=== PATIENT | female | born 1955 | race Caucasian/White ===

== ENCOUNTER → 2016-11-19 | Outpatient (CLI) | payer OTHER ==
[~2016-11-19] MED LIST: ALLERGY SYRING1 EAC1 SUBQ; AMLODIPINE BESYL5 MG PO; ASPIRIN EC81 M1 PO; ASPIRIN81 MG PO; ATORVASTATIN CA40 MG PO; BRILINTA60 MG PO; BRILINTA90 MG PO; CHLORTHALIDONE25 MG PO; CIPRO250 MG PO; CLARITIN10 M2 PO; CLARITIN10 M3 PO; COLCHICINE PO; COREG12.5 M1 PO; COREG12.5 MG PO; COZAAR100 MG PO; EFFEXOR37.5 MG PO; FUROSEMIDE40 MG PO; HUMALOG100 U/M1 SUBQ; HUMALOG100 U/M2 SUBQ; HUMALOG100 UNIT/1 SUBQ; HYDROCODON-ACE1 EAC5 PO; LANTUS SOLOSTAR3 ML SUBQ; LANTUS100 U/ML SUBQ; LASIX PO; LASIX20 MG PO; LIPITOR20 MG PO; LIPITOR40 MG PO; LISINOPRIL2.5 MG PO; LORTAB 10-3251 EACH PO; LORTAB 10-5001 EACH PO; METFORMIN PO; NEURONTIN600 MG PO; NORCO 10-325 TA1 TAB PO; NORVASC PO; PRAVASTATIN SOD40 MG PO; VITAMIN D 2 PO; VITAMIN D250000 UNIT PO
[2016-11-19 10:45] LABS: CALCIUM SERUM 9.2 mg/dL (8.4-10.2); CREATININE SERUM 1.7 mg/dL (0.6-1.4); GLOM FILT RATE Estimated 32.6 mL/min (>60); POTASSIUM 5.2 mmol/L (3.5-5.1)
== END | disposition home or self-care (01) ==
LOC: CLAB 09:29
PROVIDERS: Internal Medicine Cardiovascular Disease
DX: R60.9 Edema, unspecified (principal)
CPT/HCPCS: 36415; 80048

== ENCOUNTER 2016-12-28 20:17 | Inpatient (IN) | payer OTHER ==
--- NOTE | ~2016-12-28 | HP ---
Unit #: [id number] #: [id number] Patient: GOKUL GONZALEZ [id number] [facility] [address] [place], [place] [address] [id number] I MR#: [id number] NAME: GOKUL GONZALEZ ROOM: 241 Age: 61 Sex: F Admission Date: 12/28/2016 : 1955 Attending Physician: Maricruz Barajas M.D. Primary Care Physician: Aaron Martinez M.D. HISTORY AND PHYSICAL CHIEF COMPLAINT Generalized weakness and sweating. HISTORY OF PRESENT ILLNESS A 61-year-old female with multiple medical problems, woke up in the middle of the night and was feeling very weak, tired, and sweating. She had some milk at that time, went back to sleep. She woke up hours later, attempted to go to the yazidism but she was too weak to ambulate. She had diffuse muscle aches. She remained at home and then later on came to ER. In ER, patient was found to be in acute renal failure with elevated creatinine of 2.5. The patient was admitted to med/surg unit at [facility]. The patient does not complain of any fevers, chills, or rigors. She does not complain of chest pain. She did not complain of abdominal pain. She does not complain of vomiting. She did have some nausea. No diarrhea. PAST MEDICAL HISTORY 1. History of chronic kidney disease. 2. History of congestive heart failure with ejection fraction of 20% to 25%. 3. Type 2 diabetes mellitus. 4. Coronary artery disease, history of PCI in the past. 5. Hypertension. HOME MEDICATIONS As per med rec which has been reviewed at length and it states she is on: 1. Norvasc. 2. Lantus. 3. Humalog. 4. Lortab. 5. Claritin. 6. Effexor. 7. Vitamin D supplement. 8. Coreg. 9. Brilinta. 10. Aspirin. 11. Cozaar. 12. Chlorthalidone. 13. Lasix. 14. Colchicine. 15. Pravastatin. SOCIAL HISTORY The patient lives at home by herself. No history of smoking or alcohol Unit #: [id number] #: [id number] Patient: GOKUL GONZALEZ abuse. ALLERGIES Dye, codeine, erythromycin, ceftriaxone. FAMILY HISTORY Noncontributory. REVIEW OF SYSTEMS Per patient, she did go to her orthopedic surgeon and she had right knee injections done. She thinks it was some sort of dye and that could have thrown her in acute renal failure. That is what happened to her a few years ago when she was admitted downtown and had to have dialysis x1. At that time, she had IV dye. She does not complain of any syncopal episode or dizziness. No complaint of skin rashes. No polyuria or polydipsia. PHYSICAL EXAMINATION GENERAL: The patient is lying comfortably in bed in no respiratory distress. VITAL SIGNS: Blood pressure is 166/69, heart rate is 82, respiratory rate 18, and temperature is 98.6. HEENT: Head is normocephalic. Eye movements are normal. Pale conjunctivae. NECK: Supple. No masses. HEART: S1, S2 positive. A slight systolic ejection murmur is heard. LUNGS: Fair air entry. No additional sounds. ABDOMEN: Soft, obese, nontender. Bowel sounds are positive. EXTREMITIES: Warm to touch. No rashes. (1) . No edema. Pulses are palpable. CENTRAL NERVOUS SYSTEM: Awake, alert, oriented x3. No focal neurological deficit. Cranial nerves are grossly intact. DIAGNOSTIC STUDIES LABORATORY: Influenza A and B are negative. WBC 7.2, hemoglobin 10.3, hematocrit 30.9, platelet count 250,000. Sodium 138, potassium 4.3, BUN 74, creatinine 2.5. Troponin less than 0.05. Urinalysis shows trace leukocyte esterase. IMAGING: Chest x-ray was done which shows normal portable chest. ASSESSMENT The patient is being admitted to med/surg unit at [facility] with a diagnosis of: 1. Extreme generalized weakness. 2. Acute on chronic renal failure. 3. History of congestive heart failure with ejection fraction of 20% to 25%. 4. History of coronary artery disease, status post percutaneous coronary intervention in 2016. 5. Diabetes mellitus type 2. 6. Hypertension. 7. Hyperlipidemia. PLAN Admit to med/surg unit. Dr. Viera has been consulted. IV fluids are being started. Last note from (2) will be obtained. Echocardiogram will be done. Labs will be repeated tomorrow morning. Home medications have been reviewed and adjusted. Accu-Devendra her and at Unit #: [id number] #: [id number] Patient: LISA,GOKUL bedtime with insulin sliding scale is being started. Deep venous thrombosis prophylaxis and gastrointestinal prophylaxis have been started. Please refer to progress note for further orders. Dictated by Severo Perez TD: 12/31/2016 12:02 JOB #: [id number] HISTORY AND PHYSICAL Page 1 of 1 X Maricruz Barajas MD X HISTORY AND PHYSICAL
--- NOTE | ~2016-12-28 | CO ---
Unit #: [id number] #: [id number] Patient: GOKUL GONZALEZ [id number] [address] [place], [place] [address] [id number] I MR#: [id number] NAME: GOKUL GONZALEZ ROOM: 241 Age: 61 Sex: F Admission Date: 12/28/2016 : 1955 Attending Physician: Maricruz Barajas M.D. Primary Care Physician: Aaron Martinez M.D. Consultation Date: 12/29/2016 CONSULTATION REPORT REASON FOR CONSULTATION Acute renal failure. I would like to thank Dr. Alcantara kindly for this referral. HISTORY OF PRESENT ILLNESS This is a 61-year-old white female with a known history of chronic kidney disease. I saw her during a previous visit here. Her baseline creatinine is actually 1.6 to 1.8. She came in for an episode of weakness. She states that she was in normal state of health on Thursday. In the middle of night, she woke up in a pool of sweat and was profoundly weak. She went to the refrigerator, drank some milk, she did not check her blood sugar, and then got back in bed. She woke up few hours later and attempted to go to quaker, but states she was too weak and just had diffuse muscle aches, so she remained at home. She states when she came to the ER last evening where she was noted to have acute renal failure with creatinine of 2.5. She was hydrated overnight with normal saline and her creatinine has improved to 2.0. However, during this time, her sodium has improved from 138 to 134. Her blood pressure has been at goal. PAST MEDICAL HISTORY 1. CKD, stage 3. 2. CHF with ejection fraction of 20% to 25%. 3. Type 2 diabetes with insulin dependence. 4. Coronary artery disease. 5. History of stent placement. 6. Hypertension. 7. History of previous admission for cellulitis. CURRENT MEDICATIONS AT HOME As follows. Norvasc, Lantus, Humalog, Lortab, Claritin, Effexor, vitamin D supplement, Coreg, Brilinta, aspirin, Cozaar, chlorthalidone, Lasix, colchicine, pravastatin. ALLERGIES She is allergic to iodine dye, codeine, erythromycin, ceftriaxone. SOCIAL HISTORY She does not smoke or drink. She lives alone, but has good family support. FAMILY HISTORY Noncontributory. REVIEW OF SYSTEMS Unit #: [id number] #: [id number] Patient: GOKUL GONZALEZ No fevers. No syncope or seizure like activity. No chest pain or palpitation. No shortness of air, cough, congestion, abdominal pain, nausea, vomiting, diarrhea, melena, bright red blood per rectum. No dysuria, urgency, or frequency. No new rashes. No edema. No changes in muscle strength. No polyuria. No polydipsia. No changes in vision. PHYSICAL EXAMINATION VITAL SIGNS: Blood pressure 166/69, heart rate of 82, respiratory rate of 18, she is afebrile. GENERAL: She is alert and oriented, in no acute distress. HEENT: Extraocular movements are intact. No scleral icterus. NECK: Supple with no masses. Slight JVD. HEART: Regular S1, S2 with a slight systolic ejection murmur heard at left sternal border. LUNGS: Slightly diminished in the bases, but no rales, rhonchi, or wheezes appreciated. ABDOMEN: Soft, obese, nontender, nondistended with normal bowel sounds. EXTREMITIES: Warm to touch. No rashes. Normal color. No edema. NEUROLOGIC: She has 5/5 strength in all extremities. Cranial nerves are grossly intact. DIAGNOSTIC STUDIES LABORATORY RESULTS: Reviewed. Sodium 134, potassium 4.0, bicarb is 18, BUN is 67, creatinine is 2.0, calcium 8.6. White count 7, hemoglobin 9, platelets are 230. IMAGING STUDIES: Chest x-ray is reviewed and is negative for any acute disease. ASSESSMENT 1. Acute kidney injury. 2. Chronic kidney disease, stage 3. 3. Diabetes. 4. Weakness. 5. Hyponatremia. 6. Congestive heart failure. 7. Metabolic acidosis. PLAN At this time, I do agree that she is lying to plead on exam. She received normal saline upon arrival. Her volume status has improved. We will go ahead and stop her IV fluids today due to the fact that her sodium is dropping. We will go ahead and check a renal ultrasound and urine studies for any additional etiology for her renal failure. At this time, we laid her off for TOMASZ inhibitor as well as diuretics. If her acidosis worsens, we will start her on oral supplements. We will also check a total CK with her a.m. labs. We will add p.r.n. hydralazine for her hypertension. I have discussed this with her primary who is Dr. Alcantara. Please feel free to call with any questions or concerns regarding her renal issues. Dictated by... Mariam Viera M.D. JO-ANN/micki TD: 12/29/2016 22:37 JOB #: [id number] Unit #: [id number] #: [id number] Patient: GOKUL GONZALEZ CONSULTATION REPORT Page 1 of 1 X Mariam Viera MD X CONSULTATION REPORT
--- NOTE | ~2016-12-28 | DS ---
Unit #: [id number] #: [id number] Patient: GOKUL GONZALEZ [id number] [address] [place], [place] [address] [id number] I MR#: [id number] NAME: GOKUL GONZALEZ ROOM: 241 Age: 61 Sex: F Admission Date: 12/28/2016 : 1955 Discharge Date: 01/01/2017 Attending Physician: Maricruz Barajas M.D. Primary Care Physician: Aaron Martinez M.D. DISCHARGE SUMMARY CONSULTATIONS DURING HOSPITALIZATION 1. Dr. Mariam Viera. 2. Dr. Coy from renal services. DIAGNOSTIC STUDIES LABORATORY: Workup on discharge: Hemoglobin A1c 8.3. Sodium 140, potassium 4.8, chloride 112, BUN 50, creatinine 1.5, bicarb 21, and calcium 8.9. CBC shows WBC 6.3, hemoglobin 9.2, hematocrit 27.6, and platelet count of 227. Influenza A and B was done on admission, which was negative. Troponin on admission was less than 0.05. Urinalysis: Trace leukocyte esterase, negative bacteria. Urine culture was less than 10,000 colonies, non-significant. IMAGING STUDIES DONE DURING HOSPITALIZATION: Ultrasound of kidneys, which shows no evidence of hydronephrosis or nephrolithiasis. No perinephric fluid collection. No cystic or solid mass lesion. Persistent lobulation contour of the bilateral kidneys. There is mild cortical thinning in the kidneys bilaterally. This may be a reflection of underlying chronic renal disease. Chest x-ray, single view, was done on admission, which shows normal portable chest. FINAL DIAGNOSES 1. Acute kidney injury, prerenal, nonoliguric. 2. Chronic kidney disease, stage 3. 3. Hypertension. 4. Diabetes mellitus type 2. 5. Generalized weakness, which has improved. 6. Hyponatremia, resolved. 7. History of congestive heart failure. 8. Mild metabolic acidosis, resolved. 9. Anemia. DISCHARGE MEDICATIONS 1. Effexor 37.5 mg twice a day. 2. Loratadine 10 mg every day p.r.n. 3. Coreg 12.5 mg p.o. twice a day. 4. Norvasc 10 mg p.o. every day. 5. Pravastatin 40 mg p.o. every day. 6. Lantus, continue home dose. 7. Insulin lispro 12 units subcu. t.i.d. with meals. 8. Aspirin 81 mg every day. 9. Hydrocodone, continue home dose. Unit #: [id number] #: [id number] Patient: GOKUL GONZALEZ 10. Colchicine 0.3 mg b.i.d. p.r.n. 11. Brilinta 90 mg p.o. twice a day. 12. Vitamin D, continue home dose. Please note following medications are on hold. 1. Chlorthalidone 12.5 mg every day. 2. Furosemide 40 mg every day. 3. Losartan 100 mg every day. Renal will be evaluating the patient to see whether these medications can be restarted. HOSPITAL COURSE Ms. Gokul Gonzalez is a 61-year-old female who was admitted to the hospital because of generalized weakness and chills. Patient's baseline creatinine is 1.6-1.8. She was found to have elevated creatinine of 2.5 and was admitted to hospital with acute renal failure, possible prerenal, on top of chronic kidney disease. Patient was started on IV fluids (1)____ and later on that was stopped. Renal ultrasound was done. Urine studies were done. Renal ultrasound shows maybe some changes for chronic renal disease. Patient's losartan, Lasix, and chlorthalidone have been on hold since admission. Renal functions have improved, but she will need to continue followup with renal as outpatient. Echocardiogram was done during hospitalization, which shows left ventricular systolic function is normal with visually estimated ejection fraction of 50% to 55%, mildly dilated left atrium, mild mitral regurgitation, mild tricuspid regurgitation, right ventricular systolic pressure is 34, and some pericardial effusion is present. Patient will need to follow up with cardiology as outpatient. PHYSICAL EXAMINATION VITAL SIGNS ON DISCHARGE: Blood pressure is 154/68, respiratory rate 18, pulse is 73, and temperature 98. CHEST: Fair air entry. No additional sounds. CVS: S1 and S2 positive. Regular rhythm. ABDOMEN: Soft. EXTREMITIES: Negative edema. DISCHARGE INSTRUCTIONS 1. Patient is being discharged home in stable condition. 2. Follow up with primary care provider in one week. 3. BMP to be done in one week. 4. Follow up renal as scheduled. 5. Follow up cardiology as outpatient. 6. No NSAID, Advil, Aleve, or ibuprofen as outpatient. This was explained to patient at length. She does verbalize understanding. Dictated by... Severo Perez TD: 01/02/2017 09:37 JOB #: [id number] Unit #: [id number] #: [id number] Patient: GOKUL GONZALEZ DISCHARGE SUMMARY Page 1 of 1 X Maricruz Barajas MD X DISCHARGE SUMMARY
--- NOTE | ~2016-12-28 | US77 ---
[facility] A Service of [facility] & [facility] RADIOLOGY TEXT RESULTS PATIENT: GOKUL GONZALEZ LOCATION: C2A 241-01 : [birth year] UNIT #: [id number] AGE: [address]: Maricruz Barajas MD SEX: F ORDER DR: [id number] [facility] [address] [place], [place] [address] [id number] I MR#: [id number] Acc #: [id number] NAME: GOKUL GONZALEZ : 1955 SEX: F STUDY DATE/TIME: 12/30/2016 8:17 UNIT: C2A ROOM: 241 STUDY DESCRIPTION: US Kidney Bilateral Complete Attending Physician: Maricruz Barajas M.D. Ordering Physician: Maricruz Barajas M.D. Primary Care Physician: Aaron Martinez M.D. MEDICAL IMAGING REPORT This report is preliminary unless electronic signature is present EXAM Ultrasound kidney bilateral complete 12/30/2016 HISTORY Hyponatremia, no abdominal pain, creatinine 1.6, eGFR 34.7, BUN 56. FINDINGS Real-time ultrasonography of the kidneys performed bilaterally. Comparison to a study dated 04/17/2016 and MRI dated 05/01/2016. Visualized portions of the liver are unremarkable. The right kidney shows no hydronephrosis or nephrolithiasis. It measures approximately 11.3 cm in greatest length. There appears to be some subtle generalized cortical thinning of the right kidney in comparison to the prior examination. Prior examination showed area of focal parenchymal prominence in the mid right kidney. This is much less conspicuous on the current examination. Intervening MRI showed no evidence of suspicious renal mass lesion. The appearance on prior ultrasound probably reflects persistent lobulation. As on the prior ultrasound, the renal parenchyma shows mild generalized lobulated contour. No perinephric fluid collection. No renal calculi. Visualized urinary bladder unremarkable. The left kidney measures 11.4 cm in greatest length. No hydronephrosis or nephrolithiasis. No cystic or solid mass lesion is suggested and there is no perinephric fluid collection. The left renal parenchyma shows some questionable cortical thinning in the upper and lower poles as compared to the prior examination. IMPRESSION 1. There is no evidence of hydronephrosis or nephrolithiasis. No perinephric fluid collections. No cystic or solid mass lesions. 2. Persistent lobulation contour of the bilateral kidneys. 3. In comparison to April 2016. There appears to be some mild cortical thinning in the kidneys bilaterally. This may be a reflection of underlying chronic renal disease. [facility] A Service of [facility] / [facility] RADIOLOGY TEXT RESULTS PATIENT: GOKUL GONZALEZ LOCATION: [facility] 241-01 : [birth year] UNIT #: [id number] AGE: [address]: Maricruz Barajas MD SEX: F ORDER DR: 4. Visualized urinary bladder unremarkable. 5. Visualized right hepatic lobe unremarkable. Dictated by... Maxwell Brown M.D. THIS IS AN ELECTRONICALLY VERIFIED REPORT Maxwell Brown M.D. at 12/31/2016 2:37 PM ALONSO/beatrice TD: 12/30/2016 12:17 JOB #: [id number] MEDICAL IMAGING REPORT Page 1 of 1 COPY
--- NOTE | ~2016-12-28 | CR72 ---
[facility] A Service of [facility] & [facility] RADIOLOGY TEXT RESULTS PATIENT: GOKUL GONZALEZ LOCATION: [facility] 241-01 : 57 UNIT #: [id number] AGE: [address]: Maricruz Barajas MD SEX: F ORDER DR: [id number] [facility] [address] [place], [place] [address] [id number] I MR#: [id number] Acc #: [id number] NAME: GOKUL GONZALEZ : 1955 SEX: F STUDY DATE/TIME: 12/28/2016 21:46 [facility] [address]3345 STUDY DESCRIPTION: CR Chest Single View Portable Attending Physician: Maricruz Barajas M.D. Ordering Physician: Cecelia Spencer M.D. Primary Care Physician: Aaron Martinez M.D. MEDICAL IMAGING REPORT This report is preliminary unless electronic signature is present EXAM Single view of the chest, 12/28/2016 COMPARISON Chest 2 views, 04/15/2016 HISTORY Shortness of air and weakness on 12/28/2016 FINDINGS Single view of the chest was obtained. A single AP portable view of the chest shows both lungs to be clear. The heart is normal in size. The mediastinal contour is normal. No significant bone abnormalities are seen. IMPRESSION Normal portable chest. Dictated by... Eduardo Smith M.D. THIS IS AN ELECTRONICALLY VERIFIED REPORT Eduardo Smith M.D. at 12/29/2016 1:51 PM CPR/chelle TD: 12/29/2016 08:04 JOB #: [id number] MEDICAL IMAGING REPORT Page 1 of 1 COPY
--- NOTE | ~2016-12-28 | EKG ---
PATIENT: GOKUL GONZALEZ UNIT #: [id number] Ventricular Rate: 92 BPM Atrial Rate: 92 BPM P-R Interval: 228 ms QRS Duration: 98 ms Q-T Interval: 380 ms QTC Calculation(Bezet): 469 ms P Florence: 48 degrees Calculated R Florence: -3 degrees Calculated T Florence: 37 degrees Diagnosis Line: Sinus rhythm with 1st degree A-V block Diagnosis Line: Possible Inferior infarct , age undetermined Diagnosis Line: Abnormal ECG Diagnosis Line: When compared with ECG of 11-FEB-2016 05:46, Diagnosis Line: OR interval has increased Diagnosis Line: Nonspecific T wave abnormality no longer evident Diagnosis Line: in Inferior leads Diagnosis Line: T wave inversion no longer evident in Diagnosis Line: Anterolateral leads Diagnosis Line: Confirmed by JOCY WU MD ([id number]) on 12/28/2016 Diagnosis Line: 10:05:22 PM INTERPRETING MD: BRYCE JO
[2016-12-28 17:29] LABS: INFLUENZA A NEG (NEG); INFLUENZA B NEG (NEG)
[2016-12-28 19:51] LABS: BASOPHIL% 0.4 % (0-2.5); EOSINOPHIL# 0.1 X10e3 (0-0.7); HEMATOCRIT 30.9 % (35.0-45.0); HEMOGLOBIN 10.3 gm/dL (12.0-16.0); LYMPHOCYTE# 1.6 X10e3 (1.0-3.5); LYMPHOCYTE% 21.8 % (17.0-45.0); MEAN CELL VOLUME 83.7 FL (83-96); MEAN CORPUSCULAR HEMOGLOBIN 27.9 PG (28-34); MEAN CORPUSCULAR HGB CONC 33.3 g/dL (30-36); MEAN PLATELET VOLUME 7.2 FL (6.5-11.5); MONOCYTE# 0.7 X10e3 (0-1.0); MONOCYTE% 9.2 % (3.0-12.0); NEUTROPHIL# 4.8 X10e3 (1.5-7.1); NEUTROPHIL% 66.6 % (40-75); PLATELET COUNT 250 X10e3 (140-420); RED CELL DISTRIBUTION WIDTH 15.5 % (11.0-15.5); WHITE BLOOD COUNT 7.2 X10e3 (4.0-10.5)
[2016-12-28 19:55] LABS: DIFF IND NO
[2016-12-28 20:12] LABS: ALBUMIN SERUM 4.2 g/dL (3.5-5.0); BILIRUBIN, DIRECT 0.1 mg/dL (0.0-0.2); BILIRUBIN,INDIRECT 0.2 mg/dL (0.0-0.9); BILIRUBIN,TOTAL 0.3 mg/dL (0.2-2.0); BUN/CREATININE RATIO 29.6; CALCIUM SERUM 9.2 mg/dL (8.4-10.2); CREATININE SERUM 2.5 mg/dL (0.6-1.4); GLOM FILT RATE Estimated 20.2 mL/min (>60); POTASSIUM 4.3 mmol/L (3.5-5.1); PROTEIN TOTAL SERUM 7.5 g/dL (6.0-8.3)
[~2016-12-28 20:17] MED LIST changes: -CHLORTHALIDONE25 MG PO; -CLARITIN10 M3 PO; -COLCHICINE PO; -COZAAR100 MG PO; -FUROSEMIDE40 MG PO; -LORTAB 10-3251 EACH PO; -PRAVASTATIN SOD40 MG PO
[2016-12-28 20:52] LABS: POC - TROPONIN <0.05 ng/mL (<=0.05)
[2016-12-28 21:09] LABS: URINE SOURCE CLEAN CATCH
[2016-12-28 21:22] LABS: URINE APPEARANCE CLEAR; URINE BILIRUBIN NEG (NEG); URINE BLOOD TRACE (NEG); URINE COLOR YELLOW; URINE GLUCOSE NEG (NEG); URINE KETONE NEG (NEG); URINE LEUKOCYTE ESTERASE TRACE (NEG); URINE NITRATE NEG (NEG); URINE PROTEIN 1+ (NEG); URINE SPECIFIC GRAVITY 1.013 (1.003-1.035); URINE UROBILINOGEN 0.2 MG/DL (NEG)
[2016-12-28 21:25] LABS: CULTURE INDICATED? YES; URINE BACTERIA AUWI NEG (NEGATIVE); URINE SQUAMOUS EPITHELIAL CELL OCC /[HPF]
[2016-12-28 23:06] LABS: POC - CKMB 4.9 ng/mL (0.0-7.9); POC - TROPONIN <0.05 ng/mL (<=0.05)
[2016-12-29 07:15] LABS: BASOPHIL# 0.1 X10e3 (0-0.3); BASOPHIL% 0.9 % (0-2.5); EOSINOPHIL# 0.2 X10e3 (0-0.7); EOSINOPHIL% 2.9 % (0.0-7.0); HEMATOCRIT 27.9 % (35.0-45.0); HEMOGLOBIN 9.3 gm/dL (12.0-16.0); LYMPHOCYTE# 2.4 X10e3 (1.0-3.5); LYMPHOCYTE% 32.3 % (17.0-45.0); MEAN CELL VOLUME 83.5 FL (83-96); MEAN CORPUSCULAR HEMOGLOBIN 27.9 PG (28-34); MEAN CORPUSCULAR HGB CONC 33.5 g/dL (30-36); MEAN PLATELET VOLUME 7.5 FL (6.5-11.5); MONOCYTE# 0.8 X10e3 (0-1.0); MONOCYTE% 10.9 % (3.0-12.0); NEUTROPHIL# 3.9 X10e3 (1.5-7.1); PLATELET COUNT 230 X10e3 (140-420); RED BLOOD COUNT 3.34 X10e (3.90-5.30); WHITE BLOOD COUNT 7.3 X10e3 (4.0-10.5)
[2016-12-29 07:16] LABS: DIFF IND NO
[2016-12-29 07:41] LABS: ALBUMIN SERUM 3.7 g/dL (3.5-5.0); BILIRUBIN,TOTAL 0.5 mg/dL (0.2-2.0); BUN/CREATININE RATIO 33.5; CALCIUM SERUM 8.6 mg/dL (8.4-10.2); GLOM FILT RATE Estimated 26.5 mL/min (>60); PROTEIN TOTAL SERUM 6.7 g/dL (6.0-8.3)
[2016-12-29] MEDS ORDERED: LORTAB 10-3251 EACH PO (08:57)
[2016-12-29] MEDS ORDERED: COZAAR100 MG PO (08:57)
[2016-12-29] MEDS ORDERED: CLARITIN10 M3 PO (08:57)
[2016-12-29] MEDS ORDERED: CHLORTHALIDONE25 MG PO (08:59)
[2016-12-29] MEDS ORDERED: COLCHICINE PO (09:01)
[2016-12-29] MEDS ORDERED: PRAVASTATIN SOD40 MG PO (09:01)
[2016-12-29] MEDS ORDERED: FUROSEMIDE40 MG PO (09:01)
[2016-12-29 17:26] LABS: CREATININE,RANDOM URINE 56 mg/dL; SODIUM URINE RANDOM 77 mmol/L; TOTAL PROTEIN,RANDOM URINE 39 mg/dl (<10)
[2016-12-30 06:43] LABS: HEMATOCRIT 27.6 % (35.0-45.0); HEMOGLOBIN 9.2 gm/dL (12.0-16.0); MEAN CORPUSCULAR HEMOGLOBIN 28.1 PG (28-34); MEAN CORPUSCULAR HGB CONC 33.5 g/dL (30-36); MEAN PLATELET VOLUME 7.5 FL (6.5-11.5); RED BLOOD COUNT 3.29 X10e (3.90-5.30); RED CELL DISTRIBUTION WIDTH 14.9 % (11.0-15.5); WHITE BLOOD COUNT 6.3 X10e3 (4.0-10.5)
[2016-12-30 07:24] LABS: CALCIUM SERUM 8.8 mg/dL (8.4-10.2); CREATININE SERUM 1.6 mg/dL (0.6-1.4); GLOM FILT RATE Estimated 34.7 mL/min (>60); POTASSIUM 4.2 mmol/L (3.5-5.1)
[2016-12-31 06:06] LABS: BUN/CREATININE RATIO 31.17; CALCIUM SERUM 8.4 mg/dL (8.4-10.2); CREATININE SERUM 1.7 mg/dL (0.6-1.4); GLOM FILT RATE Estimated 32.2 mL/min (>60); POTASSIUM 4.3 mmol/L (3.5-5.1)
[2017-01-01 05:43] LABS: BUN/CREATININE RATIO 33.33; CALCIUM SERUM 8.9 mg/dL (8.4-10.2); CREATININE SERUM 1.5 mg/dL (0.6-1.4); GLOM FILT RATE Estimated 37.5 mL/min (>60); POTASSIUM 4.8 mmol/L (3.5-5.1)
== END 2017-01-01 18:45 | disposition home or self-care (01) | DRG 683 ==
LOC: CED 20:17 → CEDOF 22:30 → C2A 12-29 10:48
PROVIDERS: Emergency Medicine; Hospitalist; Physician Assistant Medical
DX: N17.9 Acute kidney failure, unspecified (principal); I13.0 Hypertensive heart and chronic kidney disease with heart failure and stage 1 through stage 4 chronic kidney disease, or unspecified chronic kidney disease; E11.22 Type 2 diabetes mellitus with diabetic chronic kidney disease; I50.9 Heart failure, unspecified; E87.2 Acidosis; E87.1 Hypo-osmolality and hyponatremia; N18.3 Chronic kidney disease, stage 3 (moderate); Z79.4 Long term (current) use of insulin; R53.1 Weakness; D64.9 Anemia, unspecified; I08.1 Rheumatic disorders of both mitral and tricuspid valves; I25.10 Atherosclerotic heart disease of native coronary artery without angina pectoris; Z95.5 Presence of coronary angioplasty implant and graft; E78.5 Hyperlipidemia, unspecified; Z88.1 Allergy status to other antibiotic agents; Z88.5 Allergy status to narcotic agent; Z91.041 Radiographic dye allergy status
CPT/HCPCS: 36415; 71010; 76770; 80048; 80053; 80076; 81003; 82550; 82553; 82570; 82947; 83036; 84156; 84300; 84484; 85025; 85027; 87086; 87804; 89190; 93005; 93306; 99285; J0692; J1815

== ENCOUNTER → 2017-01-08 | Outpatient (CLI) | payer OTHER ==
[~2017-01-08] MED LIST changes: +CHLORTHALIDONE25 MG PO; +CLARITIN10 M3 PO; +COLCHICINE PO; +COZAAR100 MG PO; +FUROSEMIDE40 MG PO; +LORTAB 10-3251 EACH PO; +PRAVASTATIN SOD40 MG PO
[2017-01-08 15:28] LABS: HEMATOCRIT 30.1 % (35.0-45.0); MEAN CELL VOLUME 83.6 FL (83-96); MEAN CORPUSCULAR HEMOGLOBIN 27.7 PG (28-34); MEAN CORPUSCULAR HGB CONC 33.2 g/dL (30-36); MEAN PLATELET VOLUME 7.4 FL (6.5-11.5); RED BLOOD COUNT 3.6 X10e (3.90-5.30); RED CELL DISTRIBUTION WIDTH 15.4 % (11.0-15.5); WHITE BLOOD COUNT 8.8 X10e3 (4.0-10.5)
[2017-01-08 15:31] LABS: URINE APPEARANCE CLEAR; URINE BILIRUBIN NEG (NEG); URINE BLOOD 1+ (NEG); URINE COLOR YELLOW; URINE GLUCOSE NEG (NEG); URINE KETONE NEG (NEG); URINE LEUKOCYTE ESTERASE 2+ (NEG); URINE NITRATE POS (NEG); URINE PROTEIN 2+ (NEG); URINE SPECIFIC GRAVITY 1.014 (1.003-1.035); URINE UROBILINOGEN 0.2 MG/DL (NEG)
[2017-01-08 15:34] LABS: URBCS1 AUWI 0-2 /[HPF] (0-2); URINE BACTERIA AUWI 4+ (NEGATIVE); URINE SQUAMOUS EPITHELIAL CELL OCC /[HPF]; UWBCS1 AUWI 50-100 (0-5)
[2017-01-08 15:46] LABS: CREATININE,RANDOM URINE 73 mg/dL; TOTAL PROTEIN,RANDOM URINE 87 mg/dl (<10)
[2017-01-08 15:50] LABS: ALBUMIN SERUM 3.9 g/dL (3.5-5.0); BILIRUBIN,TOTAL 0.5 mg/dL (0.2-2.0); BUN/CREATININE RATIO 32.5; CALCIUM SERUM 8.9 mg/dL (8.4-10.2); CREATININE SERUM 1.6 mg/dL (0.6-1.4); GLOM FILT RATE Estimated 34.7 mL/min (>60); POTASSIUM 5.2 mmol/L (3.5-5.1)
[2017-01-12 18:02] LABS: CALCIUM (PTHINTACT) 8.9 mg/dL (8.6-10.4)
== END | disposition home or self-care (01) ==
LOC: CLAB 14:48
PROVIDERS: Internal Medicine Nephrology
DX: E11.22 Type 2 diabetes mellitus with diabetic chronic kidney disease (principal); N18.3 Chronic kidney disease, stage 3 (moderate); E87.5 Hyperkalemia; R80.9 Proteinuria, unspecified; N25.81 Secondary hyperparathyroidism of renal origin; Z98.61 Coronary angioplasty status
CPT/HCPCS: 36415; 80053; 81003; 82310; 82570; 83970; 84156; 85027

== ENCOUNTER 2017-02-11 13:30 | Emergency (ER) | payer OTHER ==
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
== END 2017-02-11 15:43 | disposition home or self-care (01) ==
LOC: CED 13:30 → CFTX 13:30
DX: I31.3 Pericardial effusion (noninflammatory) (principal); E11.9 Type 2 diabetes mellitus without complications; N19 Unspecified kidney failure; V49.40XA Driver injured in collision with unspecified motor vehicles in traffic accident, initial encounter; Y92.410 Unspecified street and highway as the place of occurrence of the external cause
CPT/HCPCS: 71100; 72072; 74176; 99284

== ENCOUNTER → 2017-06-04 | Outpatient (CLI) | payer OTHER ==
--- NOTE | ~2017-06-04 | CR186 ---
[facility] A Service of [facility] & [facility] RADIOLOGY TEXT RESULTS PATIENT: GOKUL GONZALEZ LOCATION: [facility] : 57 UNIT #: [id number] AGE: [address]: REHANA PILLAI SEX: F ORDER DR: [id number] [facility] [address] [place], [place] [address] [id number] O MR#: [id number] Acc #: [id number] NAME: GOKUL GONZALEZ : 1955 SEX: F STUDY DATE/TIME: 06/04/2017 13:20 UNIT: [facility] ROOM: STUDY DESCRIPTION: CR Lumbar Spine W Bend Min 6 V Attending Physician: Rehana Pillai Aprn Referring Physician: Rehana Pillai Aprn Primary Care Physician: Aaron Martinez M.D. MEDICAL IMAGING REPORT This report is preliminary unless electronic signature is present EXAM Lumbar spine 7 views INDICATIONS Low back pain for 10 years. COMPARISON is made with 03/08/2013. FINDINGS The vertebral body heights are maintained. There is lower lumbar spine facet arthropathy. There is grade 1 anterolisthesis of L4 on L5 which slighlty increases during flexion. There is mild disc space narrowing at L4-5. Vascular calcifications. Right upper quadrant surgical clips. IMPRESSION 1. Degenerative changes as described. 2. Grade 1 anterolisthesis of L4 on L5 which slightly increases with flexion. Dictated by... Vasile Elaine M.D. THIS IS AN ELECTRONICALLY VERIFIED REPORT Vasile Elaine M.D. at 06/05/2017 7:18 AM BRONSON/елена TD: 06/04/2017 19:48 JOB #: [id number] MEDICAL IMAGING REPORT Page 1 of 1 COPY
== END | disposition home or self-care (01) ==
LOC: CRAD 12:47
DX: M54.9 Dorsalgia, unspecified (principal); M47.896 Other spondylosis, lumbar region; M43.16 Spondylolisthesis, lumbar region
CPT/HCPCS: 72114